=== PATIENT | female | born 1995 | race Caucasian/White ===

== ENCOUNTER → 2020-01-13 | Outpatient (REF) | payer OTHER ==
[~2020-01-13] MED LIST: ACET-683 PO; ARMO1TAB PO; CETI10TA PO; CLAR10TA7 PO; IBUP400T PO; IBUP80TA PO; LABE10TAB PO; MAPA500T2 PO; OMEP40CA97 PO; PRENTAB9 PO; SPRI28TA PO; SYNT150T PO; TYLENOL #3 PO; ZYRTTAB8 PO; ZYZOL PO; advair; albuterol inhaler INH; singulair PO; tylenol PO
[2020-01-13 18:04] LABS: HEMATOCRIT 39.5 % (36.0-47.0); HEMOGLOBIN 13.2 g/dl (12.0-15.5); MEAN CORPUSCULAR HEMOGLOBIN 29.3 pg (27.0-33.0); MEAN CORPUSCULAR HGB CONC 33.4 g/dl (32.0-36.5); MEAN CORPUSCULAR VOLUME 87.6 fl (80.0-96.0); PLATELET COUNT, AUTOMATED 258 10^3/uL (150-450); RED BLOOD COUNT 4.51 10^6/uL (4.00-5.40); WHITE BLOOD COUNT 9.1 10^3/uL (4.0-10.0)
[2020-01-13 18:33] LABS: TOTAL PROTEIN,RANDOM URINE 15.5 MG/DL (0.0-12.0)
[2020-01-13 18:38] LABS: ALT/SGPT 15 U/L (12-78); BILIRUBIN,TOTAL 0.2 MG/DL (0.2-1.0); CREATININE FOR GFR 0.66 MG/DL (0.55-1.30); FREE T4 0.96 NG/DL (0.76-1.46); GLOMERULAR FILTRATION RATE > 60.0 (>60); LDH LACTATE DEHYDROGENASE 149 U/L (84-246); URIC ACID 2.7 MG/DL (2.6-6.0)
[2020-01-13 19:15] LABS: HEPATITIS C VIRUS ABY INDEX 0.1 INDEX (<0.8); HIV 1&2 SCREEN CENTAUR NEGATIVE (NEGATIVE)
== END ==
LOC: M PLALAB 14:55
PROVIDERS: ATTEND Advanced Practice Midwife
DX: O99.281 Endocrine, nutritional and metabolic diseases complicating pregnancy, first trimester (principal); O09.291 Supervision of pregnancy with other poor reproductive or obstetric history, first trimester

== ENCOUNTER → 2020-01-20 | Outpatient (CLI) | payer OTHER | LOC: M PLALAB 11:10 | PROVIDERS: ATTEND Advanced Practice Midwife | DX: Z34.81 Encounter for supervision of other normal pregnancy, first trimester (principal); Z36.89 Encounter for other specified antenatal screening ==

== ENCOUNTER → 2020-03-27 | Outpatient (REF) | payer OTHER ==
[~2020-03-27] MED LIST changes: +LABE100T4 PO; -LABE10TAB PO
[2020-03-27 13:26] LABS: THYROID STIMULATING HORMONE 2.52 uIU/ML (0.358-3.740)
== END ==
LOC: M PLALAB 10:36
PROVIDERS: ATTEND Advanced Practice Midwife
DX: Z34.82 Encounter for supervision of other normal pregnancy, second trimester (principal); Z3A.00 Weeks of gestation of pregnancy not specified

== ENCOUNTER → 2020-04-04 | Outpatient (CLI) | payer OTHER ==
--- NOTE | 2020-04-04 16:01 | REP ---
INDICATION: ANATOMY. COMPARISON: None. TECHNIQUE: Transabdominal obstetric sonography. FINDINGS: Scanning through the gravid uterus demonstrates a viable single intrauterine gestation in transverse lie. motion is observed and heart rate is recorded at 149 beats per minute. A anterior placenta is seen, grade 0, without evidence of placenta previa. Amniotic fluid is subjectively normal. Closed cervical length is measured at 3.1 cm transabdominally. No extrauterine abnormality is observed. Amniotic fluid is subjectively normal. No anomaly is seen. The following anatomic structures are identified and felt to be sonographically unremarkable: cranium, choroid plexus, cavum, cerebellum and posterior fossa, face and profile, lungs, four-chamber heart with left and right ventricular outflow tract views, diaphragm, left-sided stomach, abdominal wall cord insertion, three-vessel umbilical cord, kidneys and bladder, spine, and upper and lower extremities. Biometry chart: BPD 5.0 cm, 21 weeks 0 days Head circumference 18.3 cm, 20 weeks 5 days Abdominal circumference 15.7 cm, 20 weeks 6 days Femur length 3.4 cm, 20 weeks 5 days Humeral length 3.3 cm, 21 weeks 1 day HC AC ratio normal 1.16 Cephalic index normal 0.75 Estimated weight 376 g, 0 lb 13 oz, 21st percentile for 21 weeks 2 days IMPRESSION: Viable single intrauterine gestation at 20 weeks 6 days by today's composite sonographic criteria. JANKI by today's sonography August 16, 2020. No complication identified. <Electronically signed by Lb Cannon > 04/04/20 [id number]
== END ==
LOC: M WHC 14:55
PROVIDERS: ATTEND Advanced Practice Midwife
DX: Z36.9 Encounter for antenatal screening, unspecified (principal); Z3A.20 20 weeks gestation of pregnancy

== ENCOUNTER → 2020-05-17 | Outpatient (REF) | payer OTHER ==
[2020-05-17 14:09] LABS: HEMATOCRIT 35.8 % (36.0-47.0); HEMOGLOBIN 11.3 g/dl (12.0-15.5); MEAN CORPUSCULAR HEMOGLOBIN 28.1 pg (27.0-33.0); MEAN CORPUSCULAR HGB CONC 31.6 g/dl (32.0-36.5); MEAN CORPUSCULAR VOLUME 89.1 fl (80.0-96.0); PLATELET COUNT, AUTOMATED 228 10^3/uL (150-450); RED BLOOD COUNT 4.02 10^6/uL (4.00-5.40); WHITE BLOOD COUNT 8.6 10^3/uL (4.0-10.0)
== END ==
LOC: M PLALAB 09:08
PROVIDERS: ATTEND Advanced Practice Midwife
DX: Z34.92 Encounter for supervision of normal pregnancy, unspecified, second trimester (principal); Z3A.00 Weeks of gestation of pregnancy not specified

== ENCOUNTER → 2020-05-21 | Outpatient (CLI) | payer OTHER | LOC: M LAB 07:04 | PROVIDERS: ATTEND Advanced Practice Midwife | DX: O99.810 Abnormal glucose complicating pregnancy (principal); Z3A.00 Weeks of gestation of pregnancy not specified ==

== ENCOUNTER → 2020-07-17 | Outpatient (CLI) | payer OTHER ==
--- NOTE | 2020-07-17 09:33 | REP ---
INDICATION: 37 WEEK GESTATION,UPPER QUADRANT PAIN COMPARISON: None. TECHNIQUE: Real time curtis scale ultrasound examination using curved array transducer. FINDINGS: Liver is normal in contour, size, and echogenicity without focal hepatic lesions identified. Pancreas is incompletely evaluated due to interposed bowel gas. The gallbladder is normal and without gallstones, wall thickening, or pericholecystic fluid. No biliary ductal dilatation is appreciated and the common bile duct measures 2.9 mm diameter. Right kidney is normal in reniform shape without hydronephrosis and measures 10.2 x 4.5 x 3.4 cm. Very mild renal pelvic fullness is nonspecific and likely transient-possibly related to . No ascites in the visualized right upper quadrant. IMPRESSION: Normal limited right upper quadrant ultrasound <Electronically signed by Jagdeep Del Angel > 07/17/20 [id number]
== END ==
LOC: M WHC 08:08
PROVIDERS: ATTEND Advanced Practice Midwife
DX: O26.893 Other specified pregnancy related conditions, third trimester (principal); R10.11 Right upper quadrant pain; Z3A.37 37 weeks gestation of pregnancy

== ENCOUNTER → 2020-07-19 | Outpatient (REF) | payer OTHER ==
[2020-07-19 14:03] LABS: FREE T4 0.99 NG/DL (0.76-1.46); THYROID STIMULATING HORMONE 2.47 uIU/ML (0.358-3.740)
== END ==
LOC: M PLALAB 08:48
PROVIDERS: ATTEND Advanced Practice Midwife
DX: O99.283 Endocrine, nutritional and metabolic diseases complicating pregnancy, third trimester (principal)

== ENCOUNTER → 2020-07-24 | Outpatient (CLI) | payer OTHER ==
--- NOTE | 2020-07-24 11:24 | REP ---
INDICATION: UTERINE SIZE DATE DISCREPANCY,GROWTH. JANKI by prior study 13 Aug 2020. COMPARISON: Comparison study April 04, 2020.. TECHNIQUE: Transabdominal obstetric sonography. FINDINGS: Scanning through the gravid uterus demonstrates a viable single intrauterine gestation in cephalic lie. motion is observed and heart rate is recorded at 140 beats per minute. A anterior placenta is seen, grade 3, without evidence of placenta previa. The cervix is not well seen due to head position.. No extrauterine abnormality is observed. Amniotic fluid is subjectively normal. MELLY normal 10.5 cm.. cranium, lungs, diaphragm, left-sided stomach, abdominal wall cord insertion, bilateral kidneys and urinary bladder are seen today and are felt to be unremarkable. Three-vessel cord is seen. Umbilical cord is seen draping across the shoulders.. Biometry chart: BPD 8.9 cm, 35 weeks 6 days Head circumference 32.0 cm, 36 weeks 0 days Abdominal circumference 30.9 cm, 34 weeks 6 days Femur length 7.1 cm, 36 weeks 4 days Humeral length 6.1 cm, 35 weeks 2 days HC AC ratio normal 1.03 Cephalic index normal 0.78 Estimated weight 2708 g, 5 lb 15 oz, 19th percentile for 37 weeks 1 day SD ratio in the umbilical cord artery by Doppler normal 2.81 IMPRESSION: Viable single intrauterine gestation at 35 weeks 5 days by today's composite sonographic criteria. JANKI by today's sonography August 23, 2020. No complication identified. Expected gestational age estimate based on prior sonography is 37 weeks 1 day. JANKI by prior sonography 13 Aug 2020. <Electronically signed by Lb Cannon > 07/24/20 [id number]
== END ==
LOC: M PLAIMG 10:24
PROVIDERS: ATTEND Advanced Practice Midwife
DX: O26.843 Uterine size-date discrepancy, third trimester (principal); Z3A.35 35 weeks gestation of pregnancy

== ENCOUNTER → 2022-01-23 | Outpatient (REF) | payer BC ==
[~2022-01-23] MED LIST changes: +DOK1CAP4 PO; -LABE100T4 PO; +LABE100T6 PO; +OMEP40CA4 PO; -OMEP40CA97 PO
[2022-01-27 14:08] LABS: ENDOMYSIAL ABY IgA Negative (Negative); TISSUE TRANSGLUTAMINASE IgA <2 U/mL (0-3)
== END ==
LOC: M LAB REF 16:11
PROVIDERS: ATTEND Internal Medicine
DX: R10.13 Epigastric pain (principal)

== ENCOUNTER → 2022-01-30 | Outpatient (REF) | payer BC | LOC: M LAB REF 10:47 | PROVIDERS: ATTEND Internal Medicine | DX: R10.13 Epigastric pain (principal) ==

== ENCOUNTER → 2022-02-07 | Outpatient (CLI) | payer BC | LOC: M RAD 07:32 | PROVIDERS: ATTEND Internal Medicine | DX: R10.13 Epigastric pain (principal) ==

== ENCOUNTER → 2022-03-06 | Outpatient (REF) | payer BC | LOC: M LAB REF 12:51 | PROVIDERS: ATTEND Internal Medicine | DX: E03.9 Hypothyroidism, unspecified (principal) ==

== ENCOUNTER → 2025-01-30 | Outpatient (REF) | payer BC | LOC: M LAB REF 12:15 | PROVIDERS: ATTEND Internal Medicine | DX: E03.9 Hypothyroidism, unspecified (principal) ==